=== PATIENT | female | born 1985 | race Caucasian/White ===

== ENCOUNTER 2016-09-15 19:24 | Inpatient (IN) | payer OTHER ==
[~2016-09-15] VITALS: Ht 165.1 cm; Wt 108.0 kg
[2016-09-15] MEDS ORDERED: LACTATED RINGER'S 1000 ML IV STA (21:06)
[2016-09-15] MEDS: LR 1,000 ML IV SCH (21:06)
[2016-09-15] MEDS ORDERED: OXYTOCIN DRIP 30 UNITS in APPROPRIATE DILUENT 1 EA IV SCH (21:15)
--- NOTE | 2016-09-15 21:36 | HPEPDOC ---
Obstetrical History & Physical General Date of Admission Sep 15, 2016 at 20:44 History of Present Illness 30 y/o at 37+4 seen today in clinic for NST with known GDMA2, h/o macrosomia and well after the fact after clinic closed NST reviewed and a possible late decel after the 1 ctx noted despite pos accels and mod margot. Pt called and asked to come to L&D for monitoring, repeat NST. Mod margot and accels again noted, but a single late decel again observed. Decision made to induce due to presence of 2 late decels and term status. Chief Complaint: Contractions, term, Induction of labor, Other Information Provided By: Patient Care Care: Good Care Dating Final EDC: Oct 02, 2016 Final EDC by: LMP, 1st trimester (US) Antepartum Course Diagnos(e)s see HPI above Past Medical History Past Obstetrical History : Past Obstetrical History: Multigravida Type of Delivery: Spontaneous Vaginal Del. (X2, 2007: 40 wks, 7 lbs-forceps no complications o/w. 2012: 39 wk IOL for poly, 9 lbs-vacuum (2 pulls only per pt)) [employer]CHITECT History: No pertinent history Past Medical History Surgical History: Denies/None Family History Significant Family History: No pertinent family hx Family History denies [employer]CHIT[employer] [place] Social History Marital Status: Family situation: Spouse/partner home Psychosocial History: No pertinent psych hx * Smoker: non-smoker Alcohol: Denies Drugs: denies Abuse Violence Screening Have you been hit/kicked/slapp: No Have you been sexually assault: No Imunizations Tdap status: current Influenza Status: declined Physical Examination Physical Examination GENERAL: Alert and oriented times three. BREAST: . ABDOMEN: Gravid and non-tender to touch. FETUS: vertex (VTX) by sterile vaginal examination (SVE) cx 3-4/75/-1/vtx well applied. EXTREMITIES: No edema. No clonus. Laboratory Data [facility] Laboratory Tests 2 09/15/16 20:48: Serology Scanned Report Hepatitis B Testing Urine Culture: Urinary Tract Infection (treated at [facility]) Pertinent Laboratoy Data Blood Type: O+ RBC Antibody Screen: Negative HIV: Negative Hepatitis B: Negative Hepatitis C: Unknown Rapid Plasma Reagin: Nonreactive Rubella: Immune Varicella: Immune Chlamydia/Gonorrhea: Negative Group B Streptococcus: Negative Quad Screen Test: Declined Cystic Fibrosis: Negative Glucose Tolerance Test: 156 Anatomy Ultrasound Placenta Location: Posterior Normal Anatomy: Yes Placenta Previa: No Other Ultrasounds 5JUN 77%ile 12JUL 87%ile 3310 gm Steroid Therapy Steroid Therapy: No Assessment Variability: Moderate Accelerations: Positive Decelerations: Late (X2, thus far isolated) Tocometer Contractions: Yes Frequency: irregular Strength: palpated as mild Assessment/Plan Assessment at 37+4. 2 isolated late decels but reassuring o/w. Well controlled GDMA2. Good dates, favorable cx, will induce tonight, pt agrees. 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 Diet: clrs after pit start, OK to eat prior to pit start. Dex stick 2 hrs after dinner Group B Streptococcus (GBS) neg Labs and intravenous (IV) per unit protocol. Counseled on Pitocin and induction of labor (IOL). Lactated Ringers (LR): Bolus 1000 mL prior to epidural, then at 125 mL/hr. Anticipate normal spontaneous delivery () C-S as appropriate. Sessions DARRYL BARRIENTOS MD Sep 15, 2016 21:36
[2016-09-15 23:09] VITALS: BP 122/68
[2016-09-15 23:10] LABS: MEAN CORPUSCULAR HEMOGLOBIN 28.7 pg (27.0-33.0); MEAN CORPUSCULAR HGB CONC 33.8 g/dl (32.0-36.5); RED CELL DISTRIBUTION WIDTH 14.2 % (11.5-14.5); WHITE BLOOD COUNT 8.3 K/mm3 (4.0-10.0)
[2016-09-15 23:46] VITALS: BP 123/63
[2016-09-16] VITALS (60 sets, daily range): BP systolic 91–134; BP diastolic 47–76
[2016-09-16] MEDS ORDERED: FENTANYL 2MCG/ML ROPIVACAINE 0.2% IN 0.9% NACL 200ML IVBAG As Ordered ONE (02:19)
[2016-09-16] MEDS ORDERED: EPIDURAL/PCA KEYS XX PRN (03:45)
[2016-09-16] MEDS ORDERED: NALOXONE INJ 0.4 MG/1 ML VIAL (J2310) IV PRN (03:45)
[2016-09-16] MEDS ORDERED: ONDANSETRON 4MG/2ML VIAL (J2405) IV PRN (03:45)
[2016-09-16] MEDS ORDERED: FENTANYL/ROPIVACAINE/NACL BAG 200 ML EPIDURAL SCH (03:45)
[2016-09-16] MEDS ORDERED: diphenhydrAMINE INJ 50MG/ML VIAL (J1200) IV PRN (03:45)
[2016-09-16] MEDS ORDERED: ePHEDrine SULFATE 25 MG/5 ML(5MG/ML) SYRINGE IV PRN (03:45)
[2016-09-16] MEDS ORDERED: EPIDURAL COMMENT XX SCH (03:45)
[2016-09-16] MEDS ORDERED: REFRIGERATOR IV KEYS XX PRN (03:45)
[2016-09-16] MEDS ORDERED: LACTATED RINGER'S 1000 ML IV PRN (03:45)
--- NOTE | 2016-09-16 04:14 | IPNPDOC ---
Text Note Date of Service The patient was seen on 09/16/16. NOTE NST Cat 1 until after epidural when had a BP drop and a fwe late decels, easily responded to single dose Ephedrine. Pit at 8-10 mu/min Cx 5-6/80/-1/well applied with ctx About to do AROM but felt hand on side of vtx Will recheck in 2 hrs, sooner prn. Sessions VS,Nora, I+O VSNora I+O Laboratory Tests 09/15/16 22:58 Red Blood Count 3.85 L, Mean Corpuscular Volume 85.0, Mean Corpuscular Hemoglobin 28.7, Mean Corpuscular Hemoglobin Concent 33.8, Red Cell Distribution Width 14.2 Vital Signs Date Time Temp Pulse Resp B/P (MAP) Pulse Ox O2 Delivery O2 Flow Rate FiO2 09/16/16 00:46 78 22 115/71 (86) 09/15/16 23:46 98.6 SESSIONS,DARRYL Oconnor MD Sep 16, 2016 04:14
[2016-09-16] MEDS: LR 1,000 ML IV SCH (05:06)
--- NOTE | 2016-09-16 06:43 | IPNPDOC ---
Text Note Date of Service The patient was seen on 09/16/16. NOTE NST now Cat 1 for last 90 min with reg ctx's, took a while to correct BP post- epidural (3 doses ephedrine) and FHT was telling with int't lates Cx 8/100/0 AROM with clr fluid BS 2 hrs after dinner last night was 135 Doing well. Check in 2 hrs, sooner prn, SBAR to Dr Resendez at 730. Sessions VS,Nora, I+O VSNora I+O Laboratory Tests 09/15/16 22:58 Red Blood Count 3.85 L, Mean Corpuscular Volume 85.0, Mean Corpuscular Hemoglobin 28.7, Mean Corpuscular Hemoglobin Concent 33.8, Red Cell Distribution Width 14.2 Vital Signs Date Time Temp Pulse Resp B/P (MAP) Pulse Ox O2 Delivery O2 Flow Rate FiO2 09/16/16 00:46 78 22 115/71 (86) 09/15/16 23:46 98.6 SESSIONS,DARRYL Oconnor MD Sep 16, 2016 06:43
[2016-09-16] MEDS: metFORMIN XR 750 MG TAB PO SCH (09:00)
[2016-09-16] MEDS ORDERED: DOCUSATE SODIUM 100 MG CAP PO PRN (10:00)
[2016-09-16] MEDS ORDERED: ANUSOL HC CREAM 30GM TOP PRN (10:00)
[2016-09-16] MEDS ORDERED: MOM 30ML SUSPENSION UDC PO PRN (10:00)
[2016-09-16] MEDS ORDERED: MEASLES,MUMPS,RUBELLA VACCINE INJ (MMR-II) (90707) SC SCH (10:00)
[2016-09-16] MEDS ORDERED: DIBUCAINE 1% OINTMENT 30GM TOP PRN (10:00)
[2016-09-16] MEDS ORDERED: METHYLERGONOVINE MALEATE 0.2 MG TAB PO PRN (10:00)
[2016-09-16] MEDS ORDERED: RHOGAM 300 MCG (1500 IU) INJ (J2790) IM SCH (10:00)
[2016-09-16 10:03] LABS: CORD GAS ABE A -0.7; CORD GAS ABE V -2.5; CORD GAS HCO3 A 26.9 MEQ/L; CORD GAS HCO3 V 23.1 MEQ/L; CORD GAS O2 SAT A 39.2 %; CORD GAS PCO2 A 56.4 mmHg; CORD GAS PCO2 V 42.8 mmHg; CORD GAS PH A 7.296 UNITS; CORD GAS PH V 7.35 UNITS; CORD GAS PO2 A 17.8 mmHg; CORD GAS PO2 V 27.1 mmHg; CORD GAS SBC A 22.4 MEQ/L; CORD GAS SBC V 21.6 MEQ/L; CORD GAS TCO2 A 28.6 MEQ/L; CORD GAS TCO2 V 24.4 MEQ/L
[2016-09-16] MEDS ORDERED: METF850T4 PO (10:56)
[2016-09-16] MEDS ORDERED: METF750T PO (11:21)
[2016-09-16] MEDS: IBUPROFEN 800 MG TAB PO PRN ×2 (13:51→22:34)
[2016-09-16] MEDS: ACETAMINOPHEN 500 MG TAB PO PRN (17:52)
[2016-09-17] MEDS: ACETAMINOPHEN 500 MG TAB PO PRN (03:50)
[2016-09-17 05:47] VITALS: BP 117/59
[2016-09-17 07:25] LABS: MEAN CORPUSCULAR HEMOGLOBIN 27.9 pg (27.0-33.0); MEAN CORPUSCULAR HGB CONC 32.4 g/dl (32.0-36.5); RED CELL DISTRIBUTION WIDTH 14.5 % (11.5-14.5); WHITE BLOOD COUNT 9.8 K/mm3 (4.0-10.0)
[2016-09-17] MEDS ORDERED: NUPE1OIN2 TOP (08:16)
[2016-09-17] MEDS ORDERED: MILKSUS PO (08:16)
[2016-09-17] MEDS ORDERED: TYLE500T78 PO (08:16)
[2016-09-17] MEDS ORDERED: ANUS2.5C2 TOP (08:16)
[2016-09-17] MEDS ORDERED: COLA100C5 PO (08:16)
[2016-09-17] MEDS ORDERED: MOTR200T44 PO (08:16)
[2016-09-17] MEDS ORDERED: PRENATAL VITAMINS CHEWABLE TABLET PO SCH (09:00)
[2016-09-17] MEDS: IBUPROFEN 800 MG TAB PO PRN (09:19)
[2016-09-17] MEDS: metFORMIN XR 750 MG TAB PO SCH (09:20)
--- NOTE | 2016-09-18 22:01 | DSES ---
DATE OF ADMISSION: 09/15/2016 DATE OF DISCHARGE: 09/17/2016 HISTORY: This lady is a 31-year-old 3, now para 3, who had induction of labor at 37 and three because of spontaneous intermittent late decelerations. She delivered a live male , 8 pounds 5 ounces, scores of eight and nine at one and five minutes respectively. Arterial pH was 7.29, base excess -0.7, venous pH 7.35, base excess -2.5. Admitting hemoglobin was 11.1, hematocrit 32.7 and platelets are 238. On discharge, her vital signs are blood pressure 117/59, respirations 18, pulse 85, temperature is 97.6. We discussed phlebitis, cystitis, mastitis, metritis and cellulitis, diet, exercise pain management, perineal, breast and wound care. The patient is planning on having her have a vasectomy as a method of control. She has polycystic ovary syndrome (PCOS), taking metformin 750 mg twice a day. She is normocephalic, atraumatic. Neck full range of motion. Pupils equal and reactive to light. Distal pulses symmetric. No evidence of deep venous thrombosis (DVT), pulmonary embolism (PE) or superficial phlebitis. Reflexes not brisk and no pedal edema. Lungs are clear bilaterally to bases. No wheezes or rhonchi. No costovertebral angle tenderness. Uterus two below. Lochia is moderate. Four quadrant bowel sounds are noted. Perineum is intact. She has no rashes, lesions or pruritus. No arthralgia, myalgia. No complaints of cough, wheezes, shortness of breath or dyspnea on exertion. No chest pain. She is not bleeding. Neuro complete. No incontinence, urgency or frequency. No nausea, vomiting, diarrhea or constipation. No diabetic issues. Family history is noncontributory. Past surgical-medical history is unremarkable. She does not smoke or drink or abuse drugs and there is no domestic violence. 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 In summary have a 31-year-old 3, delivered a live male infant, discharged with medications.
--- NOTE | 2016-09-27 18:03 | DN ---
DATE: 09/16/2016 This lady is a 31-year-old 2, para 2 who was admitted for induction of labor and had significant spontaneous intermittent decelerations. With epidural in place, she delivered a live male infant weighing 8 pounds 5 ounces, 3780 grams, scores of 8 and 9 at one and five minutes respectively. Three-vessel cord. Membranes and tissues intact. Etiology regarding the spontaneous decelerations is unknown. Examination of the vulva, vagina, the cervix, the rectum and the sphincter were intact. We did notice that she had some degree of polyhydramnios at the time of membrane rupture. Uterus contracted well under Pitocin. The patient and baby tolerated procedure well.
== END 2016-09-17 13:30 | disposition home or self-care (01) | DRG 775 ==
LOC: M LDO 19:24 → M LDI 20:44 → M OBS 09-16 15:53
PROVIDERS: ADMIT Obstetrics & Gynecology; ATTEND Obstetrics & Gynecology
PROC: 3E033VJ Introduction of Other Hormone into Peripheral Vein, Percutaneous Approach (ICD-10-PCS; 2016-09-15)
PROC: 10E0XZZ Delivery of Products of Conception, External Approach (ICD-10-PCS; principal; 2016-09-16)
PROC: 10907ZC Drainage of Amniotic Fluid, Therapeutic from Products of Conception, Via Natural or Artificial Opening (ICD-10-PCS; 2016-09-16)
DX: O76 Abnormality in fetal heart rate and rhythm complicating labor and delivery (principal); Z37.0 Single live birth; O24.425 Gestational diabetes mellitus in childbirth, controlled by oral hypoglycemic drugs; O40.3XX0 Polyhydramnios, third trimester, not applicable or unspecified; Z3A.37 37 weeks gestation of pregnancy